=== PATIENT | female | born 1980 | race Caucasian/White ===

== ENCOUNTER 2022-11-24 08:54 | Day surgery (SDC) | payer OTHER, SELFPAY ==
--- NOTE | 2022-11-23 10:38 | HO.ANESPROP2 ---
Documented by User: Mariya Greene NP 11/23/22 10:39 HPI - Anesthesia Eval Consult details Narrative: 42yo F for Upper Endoscopy and Colonoscopy s/p gastric sleeve PMFSH Past Medical History Medical History (Updated 11/23/22 @ 06:56 by Svetlana Perez, RN) Asthma Borderline high cholesterol GERD (gastroesophageal reflux disease) History of anxiety History of depression Iron deficiency anemia Sleep apnea Surgical History Surgical History (Updated 11/23/22 @ 06:58 by Svetlana Perez RN) H/O gastric sleeve Hx of cholecystectomy Previous section Social History Social History Patient Tobacco Use Status: Former Tobacco user Quit Date: 2012 Years Smoked: 15 Use of substances other than those prescribed or required for medical reasons: No Are you DNR?: No Advance Directives: No Advance Directives Information Provided: Yes Meds Allergies Allergy/AdvReac Type Severity Reaction Status Date / Time crab AdvReac Vomiting Verified 11/24/22 09:38 Home Medications Medication Instructions Recorded Confirmed Last Taken Type ascorbic acid (vitamin C) 125 mg 125 mg PO DAILY 11/23/22 11/23/22 Unknown History chewable tablet (Vitamin C) cholecalciferol (vitamin D3) 125 125 mcg PO DAILY 11/23/22 11/23/22 Unknown History mcg (5,000 unit) tablet (Vitamin D3) ferrous sulfate 325 mg (65 mg 325 mg PO DAILY 11/23/22 11/23/22 Unknown History iron) tablet (iron) fluoxetine 20 mg capsule 1 cap PO DAILY 11/23/22 11/23/22 Unknown History fluoxetine 40 mg capsule 1 cap PO DAILY 11/23/22 11/23/22 Unknown History [id number]-yecatzhk-sgsw 45 mg-folic 1 cap PO DAILY 11/23/22 11/23/22 Unknown History acid 800 mcg-vit K 120 mcg capsule (Bariatric Multivitamins) pantoprazole 40 mg tablet,delayed 1 tab PO DAILY 11/23/22 11/23/22 Unknown History release Exam Exam Date and Time: November 23, 2022 1038 Assessment and Plan Assessment Anesthesia Assessment: Chart Reviewed Documented by User: Laura Dhillon MD 11/24/22 09:40 [facility] Past Medical History Medical History (Updated 11/23/22 @ 06:56 by Svetlana Perez, RN) Asthma Borderline high cholesterol GERD (gastroesophageal reflux disease) History of anxiety History of depression Iron deficiency anemia Sleep apnea Family History Family history of problems with anesthesia: No Surgical History Surgical History (Updated 11/23/22 @ 06:58 by Svetlana Perez, RN) H/O gastric sleeve Hx of cholecystectomy Previous section History of Problems with Anesthesia: No Social History Social History Patient Tobacco Use Status: Former Tobacco user Quit Date: 2012 Years Smoked: 15 Use of substances other than those prescribed or required for medical reasons: No Are you DNR?: No Advance Directives: No Advance Directives Information Provided: Yes Meds Allergies Allergy/AdvReac Type Severity Reaction Status Date / Time crab AdvReac Vomiting Verified 11/24/22 09:38 Home Medications Medication Instructions Recorded Confirmed Last Taken Type ascorbic acid (vitamin C) 125 mg 125 mg PO DAILY 11/23/22 11/23/22 Unknown History chewable tablet (Vitamin C) cholecalciferol (vitamin D3) 125 125 mcg PO DAILY 11/23/22 11/23/22 Unknown History mcg (5,000 unit) tablet (Vitamin D3) ferrous sulfate 325 mg (65 mg 325 mg PO DAILY 11/23/22 11/23/22 Unknown History iron) tablet (iron) fluoxetine 20 mg capsule 1 cap PO DAILY 11/23/22 11/23/22 Unknown History fluoxetine 40 mg capsule 1 cap PO DAILY 11/23/22 11/23/22 Unknown History uobleywg-tzwjchka-oovq 45 mg-folic 1 cap PO DAILY 11/23/22 11/23/22 Unknown History acid 800 mcg-vit K 120 mcg capsule (Bariatric Multivitamins) pantoprazole 40 mg tablet,delayed 1 tab PO DAILY 11/23/22 11/23/22 Unknown History release Exam Airway Mallampati Class: II TM Dist: >3cm Neck ROM: Full Heart: rrr Lungs: cta Assessment and Plan Final Anesthetic Review Family History of Problems with Anesthesia: No History of Problems with Anesthesia: No ASA Class: II Final Preanesthetic Review: No Changes in Pt Med Stat, Meds/Allgs Chart Reviewed, Consent Obtained/Reviewed and Anes Risks/Benef Reviewed Patient Risk: Low Procedure Risk: Low Anesthetic Plan Anesthetic Plan: MAC: and Agree w/ Assess. and Plan Disposition: Standard PACU
[2022-11-24 09:12] VITALS: BMI 34.1
[2022-11-24 09:36] VITALS: BP 126/78; PULSE 85; RESP 18; TEMP 37; O2SAT 97
[2022-11-24 09:38] LABS: UPreg QC Valid YES; Urine Pregnancy NEGATIVE (NEGATIVE)
[2022-11-24] MEDS: Lactated Ringers 1,000 ML 100 ML IVCONT (09:38)
--- NOTE | 2022-11-24 10:05 | MHC.SHP ---
Pre-Procedural Eval Section A Date of Service: 11/24/22 Changes since office visit: No Cold of Flu in the past 2 weeks, No New Medical Problems, No Changes in Medication and No Patient answered all questions The History & Physical has been completed within 30 days and I have reviewed it.: Yes Section B Chief Complaint: rectal bleeding,reflux disease,anemia Allergies: Allergies Allergy/AdvReac Type Severity Reaction Status Date / Time crab AdvReac Vomiting Verified 11/24/22 09:38 Plan I have reviewed the history and physical and performed a pertinent physical examination on my patient. No changes have occurred unless specified. Time Spent With Patient Time: Total time managing care of this patient today ____ minutes.
[2022-11-24 10:54] VITALS: BP 115/69; PULSE 83; RESP 17; TEMP 36.3; O2SAT 99
--- NOTE | 2022-11-24 10:56 | P.BOP_ITS ---
Brief Operative Note Date of Service: 11/24/22 Pre-op diagnosis: see H& P no changes Post-op diagnosis: same Procedure: egd colonoscopy Surgeon: Kasi Leon Anesthesia: MAC Was an Training And Documentation Specialist used for this Procedure?: No Estimated blood loss (mL): 2 Pathology: other Condition: stable Disposition: PACU
[2022-11-24 11:10] VITALS: BP 121/72; PULSE 74; RESP 16; O2SAT 100
[2022-11-24 11:25] VITALS: BP 130/80; PULSE 73; RESP 16; TEMP 36.3; O2SAT 100
--- NOTE | 2022-11-24 11:47 | OP_ITS ---
SURGEON: Kasi Leon MD INDICATIONS: Rectal bleeding, gastroesophageal reflux disease, and anemia. PREOPERATIVE DIAGNOSIS: POSTOPERATIVE DIAGNOSIS: PROCEDURE PERFORMED: Upper endoscopy with biopsy, colonoscopy to the terminal ileum with biopsy. ESTIMATED BLOOD LOSS: COMPLICATIONS: ANESTHESIA: Monitored anesthesia care. ASSISTANTS: SPECIMENS: DESCRIPTION OF PROCEDURE: Date: 11/24/22. The history and physical was performed. The risks and benefits of the procedure were explained to the patient, and informed consent was obtained. The patient was placed in the left lateral decubitus position. The Olympus video gastroscope was introduced into the esophagus, stomach, and duodenum. Examination was performed. The scope was removed. She was repositioned for colonoscopy. Digital rectal exam was performed and was found to be normal. The Olympus pediatric video colonoscope was introduced into the rectum and advanced to the cecum without difficulty. The cecum was identified by transillumination, palpation, and identification of the ileocecal valve. Examination was performed. The scope was removed. She tolerated the procedure well and was taken to recovery area in stable condition. FINDINGS: Upper endoscopy: 1. Esophagus: The esophagus was normal. Biopsies were obtained from the EG junction. There was a small sliding hiatal hernia. 2. Stomach: The stomach showed no evidence of masses, ulcers, or polyps. Enteral biopsies were obtained. There were surgical changes from her previous gastric sleeve. 3. Duodenum: The bulb and 2nd portion were normal. Biopsies were obtained from the second portion. Colonoscopy: The terminal ileum was normal. The visualized colonic mucosa was normal. The quality of the prep was good. Sigmoid biopsies were obtained. Retroflexed examination showed small internal hemorrhoids. IMPRESSION: 1. Gastroesophageal reflux disease. 2. Normal colonoscopy. RECOMMENDATION: 1. Follow up the biopsy results. 2. Repeat colonoscopy is recommended in 10 years for average risk individuals. MD CASANDRA Zafar/GWENDOLYN / [id number] [facility]
== END 2022-11-24 11:50 | disposition home or self-care (01) ==
PROVIDERS: Nurse Practitioner; PCP Internal Medicine; Visit Provider Internal Medicine Gastroenterology
PROC: (CPT 45380; principal; 2022-11-24 10:10)
DX: K62.5 Hemorrhage of anus and rectum (principal); K64.8 Other hemorrhoids; Z83.71 Family history of colonic polyps; K21.9 Gastro-esophageal reflux disease without esophagitis; K31.9 Disease of stomach and duodenum, unspecified; D50.9 Iron deficiency anemia, unspecified; K44.9 Diaphragmatic hernia without obstruction or gangrene; G47.33 Obstructive sleep apnea (adult) (pediatric); F32.A Depression, unspecified; F41.9 Anxiety disorder, unspecified; Z79.899 Other long term (current) drug therapy; Z99.89 Dependence on other enabling machines and devices; Z98.84 Bariatric surgery status; Z90.49 Acquired absence of other specified parts of digestive tract
CPT/HCPCS: 45380; 43239; 81025; 88305; 88342; J2250